=== PATIENT | female | born 1990 | race Caucasian/White ===

== ENCOUNTER 2018-08-24 16:51 | Observation (INO) | payer MEDICAID ==
[~2018-08-24] VITALS: Ht 157.5 cm; Wt 81.6 kg
== END 2018-08-24 21:05 | disposition home or self-care (01) ==
LOC: L&D 16:51 → 8 EST LDRP 16:58
PROVIDERS: ADMIT Obstetrics & Gynecology; ATTEND Obstetrics & Gynecology
DX: O62.9 Abnormality of forces of labor, unspecified (principal); Z3A.38 38 weeks gestation of pregnancy
CPT/HCPCS: 99281; G0378

== ENCOUNTER 2018-08-25 08:00 | Inpatient (IN) | payer MEDICAID ==
[~2018-08-25] VITALS: Ht 157.5 cm; Wt 81.6 kg
[2018-08-25] MEDS ORDERED: DEXT 5%/LR + PITOCIN 20UNITS/L 1,000 ML IV SCH ×2 (08:39→11:10)
[2018-08-25] MEDS ORDERED: LACTATED RINGERS 1,000 ML IV SCH ×2 (08:39→09:00)
[2018-08-25] MEDS ORDERED: BUTORPHANOL TARTRATE 2 MG/ML VIAL IV PRN (08:45)
[2018-08-25] MEDS ORDERED: LIDOCAINE HCL 1% 20ML VIAL (Pyxis) INJ INFIL SCH (08:45)
[2018-08-25] MEDS ORDERED: CARBOPROST TROMETHAMINE 250 MCG/ML AMPUL IM PRN (08:45)
[2018-08-25] MEDS ORDERED: METHYLERGONOVINE MALEATE 0.2 MG/ML IM PRN (08:45)
[2018-08-25] MEDS ORDERED: NALOXONE HCL 0.4 MG/ML 1ML VIAL IM PRN (08:45)
[2018-08-25 09:15] LABS: CLARITY URINE CLOUDY (CLEAR); COLOR URINE YELLOW (YELLOW); KETONES URINE NEGATIVE (NEGATIVE); LEUKOCYTE ESTERASE URINE TRACE (NEGATIVE); NITRITE URINE NEGATIVE (NEGATIVE); OCCULT BLOOD URINE NEGATIVE (NEGATIVE); PROTEIN URINE NEGATIVE (NEGATIVE); UROBILINOGEN URINE 0.2 E.U./dL (0.2-1.0)
[2018-08-25 09:16] LABS: BASOPHILS % 0.6 % (0.0-2.0); EOSINOPHILS % 0.3 % (0.0-5.0); HEMATOCRIT. 38.3 % (36.0-48.0); HEMOGLOBIN. 12.6 g/dL (12.0-16.0); LYMPHOCYTES % 11.8 % (20.0-50.0); MEAN CORPUSCULAR HEMOGLOBIN 30.3 pg (28.0-32.0); MEAN CORPUSCULAR VOLUME 92.2 fL (81.0-99.0); MONOCYTES % 5.5 % (2.0-8.0); NEUTROPHILS % 81.8 % (40.0-76.0); PLATELET 201 x1000/uL (130-400); RED BLOOD CELL COUNT 4.15 mill/uL (4.2-5.4); RED CELL DISTRIBUTION WIDTH 13.4 % (11.6-14.6)
[2018-08-25 09:24] LABS: INR 0.9; PARTIAL THROMBOPLASTIN TIME 26.3 sec (23.4-31.0); PROTHROMBIN TIME 9.1 sec (9.1-11.1)
[2018-08-25 09:38] LABS: *AMPHETAMINES SCREEN URINE NEGATIVE (NEGATIVE); *BARBITURATES SCREEN URINE NEGATIVE (NEGATIVE); *BENZODIAZEPINES SCREEN URINE NEGATIVE (NEGATIVE); *COCAINE SCREEN URINE NEGATIVE (NEGATIVE)
[2018-08-25 09:39] LABS: CANNABINOID URINE SCREEN NEGATIVE (NEGATIVE); METHADONE URINE SCREEN NEGATIVE (NEGATIVE); OPIATES URINE SCREEN NEGATIVE (NEGATIVE); PHENCYCLIDINE URINE SCREEN NEGATIVE (NEGATIVE)
[2018-08-25 10:50] LABS: HEPATITIS B SURFACE ANTIGEN NEGATIVE
[2018-08-25] MEDS ORDERED: IBUPROFEN 800MG TABLET PO PRN (11:15)
[2018-08-25] MEDS ORDERED: RHO(D) IMMUNE GLOBULIN 300 MCG/SYR IM PRN (11:15)
[2018-08-25] MEDS ORDERED: ACETAMINOPHEN WITH CODEINE 300/30MG TABLET PO PRN (11:15)
[2018-08-25] MEDS ORDERED: IBUPROFEN 400MG TABLET PO PRN (11:15)
[2018-08-25 12:30] VITALS: BP 94/61
[2018-08-25 13:00] VITALS: BP 99/53
[2018-08-25 14:23] VITALS: BP 106/61
[2018-08-25 16:04] VITALS: BP 101/61
[2018-08-25 20:19] VITALS: BP 97/59
[2018-08-25 23:25] VITALS: BP 102/60
[2018-08-26 04:19] VITALS: BP 98/54
[2018-08-26 06:45] LABS: BASOPHILS % 0.6 % (0.0-2.0); EOSINOPHILS % 0.4 % (0.0-5.0); HEMATOCRIT. 34.9 % (36.0-48.0); HEMOGLOBIN. 11.6 g/dL (12.0-16.0); LYMPHOCYTES % 19.9 % (20.0-50.0); MEAN CORPUSCULAR HEMOGLOBIN 30.6 pg (28.0-32.0); MEAN CORPUSCULAR VOLUME 92.3 fL (81.0-99.0); MEAN PLATELET VOLUME 11.2 fl (7.4-10.4); MONOCYTES % 7.9 % (2.0-8.0); NEUTROPHILS % 71.2 % (40.0-76.0); PLATELET 155 x1000/uL (130-400); RED BLOOD CELL COUNT 3.78 mill/uL (4.2-5.4); RED CELL DISTRIBUTION WIDTH 13.4 % (11.6-14.6)
[2018-08-26 08:39] VITALS: BP 110/68
[2018-08-26 16:30] VITALS: BP 102/68
[2018-08-26 20:24] VITALS: BP 113/68
[2018-08-26 23:19] VITALS: BP 109/70
[2018-08-27 09:00] VITALS: BP 107/60
== END 2018-08-27 12:30 | disposition home or self-care (01) | DRG 560 ==
LOC: 8 EST LDRP 08:00 → OBSVTOIN 08:00 → 8 EST LDRP 09:17 → 8EST 12:30
PROVIDERS: ADMIT Obstetrics & Gynecology; ATTEND Obstetrics & Gynecology
PROC: 10907ZC Drainage of Amniotic Fluid, Therapeutic from Products of Conception, Via Natural or Artificial Opening (ICD-10-PCS; principal; 2018-08-25)
PROC: 10E0XZZ Delivery of Products of Conception, External Approach (ICD-10-PCS; 2018-08-25)
DX: O80 Encounter for full-term uncomplicated delivery (principal); Z37.0 Single live birth; Z3A.39 39 weeks gestation of pregnancy; Z82.49 Family history of ischemic heart disease and other diseases of the circulatory system; Z83.3 Family history of diabetes mellitus
CPT/HCPCS: 36415; 80305; 86592; 86703; 86762; 86850; 86900; 87340; 99281; G0378; J2590; J3490; J7120

== ENCOUNTER 2021-01-17 00:23 | Emergency (ER) | payer MEDICAID ==
[~2021-01-17] VITALS: Ht 160 cm; Wt 61.0 kg
[2021-01-17] MEDS ORDERED: ACET-2708 MT (01:35)
[2021-01-17] MEDS ORDERED: CEPH500T MT (01:35)
[2021-01-17] MEDS ORDERED: ACETAMINOPHEN 325MG TABLET PO ONE (01:45)
[2021-01-17] MEDS ORDERED: BACITRACIN ZINC OINT UDPKT TOP ONE (01:45)
[2021-01-17 02:10] VITALS: BP 111/77
== END 2021-01-17 02:08 | disposition home or self-care (01) ==
LOC: ER 00:23
DX: L03.116 Cellulitis of left lower limb (principal)
CPT/HCPCS: 99283

== ENCOUNTER 2021-07-06 23:47 | Emergency (ER) | payer MEDICAID ==
[~2021-07-06] VITALS: Ht 160 cm; Wt 64.0 kg
[~2021-07-06 23:47] MED LIST: ACET-2708 MT; CEPH500T MT
[2021-07-07 02:25] VITALS: BP 122/77
[2021-07-07] MEDS ORDERED: PERM60CR4 TP (02:28)
== END 2021-07-07 02:30 | disposition home or self-care (01) ==
LOC: ER 23:47
DX: B86 Scabies (principal)
CPT/HCPCS: 99282

== ENCOUNTER 2021-12-01 20:11 | Emergency (ER) | payer MEDICAID ==
[~2021-12-01] VITALS: Ht 160 cm; Wt 65.0 kg
[~2021-12-01 20:11] MED LIST changes: +PERM60CR4 TP
[2021-12-01] MEDS ORDERED: ONDANSETRON 4MG ODT PO ONE (23:00)
[2021-12-02] MEDS ORDERED: ACETAMINOPHEN 325MG TABLET PO ONE (01:15)
[2021-12-02 04:31] VITALS: BP 124/86
== END 2021-12-02 04:52 | disposition home or self-care (01) ==
LOC: ER 20:11
DX: R11.0 Nausea (principal); F10.129 Alcohol abuse with intoxication, unspecified; Y90.0 Blood alcohol level of less than 20 mg/100 ml; D64.9 Anemia, unspecified; F32.9 Major depressive disorder, single episode, unspecified; R07.89 Other chest pain
CPT/HCPCS: 71045; 81025; 93005; 99283; Q0162